=== PATIENT | male | born 1970 | race Caucasian/White ===

== ENCOUNTER 2021-11-19 00:28 | Day surgery (SDC) | payer BC, SELFPAY ==
[2021-11-11 10:13] VITALS: BMI 31.4
[2021-11-19 09:46] VITALS: BP 133/83; PULSE 73; RESP 18; TEMP 36.2; O2SAT 100
--- NOTE | 2021-11-19 09:57 | P.PNAN_ITS ---
Anes - Initial Pre Proc Eval Procedure: Operation Date: 11/19/21 11:00 Proposed Procedures p Screening Colonoscopy - Jairo Alberts MD Date/Time: 11/19/21 09:57 Surgeon: Jairo Alberts MD Pre Op Diagnosis: neoplasm screening Patient Data Age: 50 Gender: M Height: 1.8 m Weight: 103.6 kg Last Vital Signs Temp 36.2 C L 11/19/21 09:46 Pulse 73 11/19/21 09:46 Resp 18 11/19/21 09:46 BP 133/83 11/19/21 09:46 Pulse Ox 100 11/19/21 09:46 Allergies Allergy/AdvReac Type Severity Reaction Status Date / Time No Known Allergies Allergy Unknown Verified 11/19/21 09:45 Home Medications Medication Instructions Recorded Confirmed Type sod picosulf 10 mg-magnes 3.5 160 ml PO DAILY #320 ml 10/05/21 11/19/21 Rx gram-citric 12 gram/160 mL oral solution famotidine 20 mg PO DAILY PRN 11/11/21 11/19/21 History ibuprofen 600 mg PO Q6H PRN 11/11/21 11/19/21 History Patient hx anesthesia problems: none Family hx anesthesia problems: other (slow to awaken) Results Review: All pre-operative results and documents have been reviewed as part of the pre-operative evaluation. [facility] Past Medical History Medical History GERD (gastroesophageal reflux disease) Social History Social History Smoking status: Current some day smoker Tobacco type: cigars Alcohol intake: current Drinks per week: 3 Living arrangements: with family Spiritual care concerns: No Anes - Eval Final PreProcedure Day of Procedure 11/19/21 09:57 Patient weight: overweight Heart: regular rate and rhythm Lungs: clear to auscultation Airway: Mallampati scale class II Neurological: alert and oriented Last oral intake: >/= 8 hours ASA classification: II Emergent: no Anesthetic plan: proceed Anesthesia type and monitoring: general GIVS and standard monitoring Results Review: All pre-operative results and documents have been reviewed as part of the pre-operative evaluation. Informed Consent: The patient's anesthetic plan and its attendant risks and benefits were discussed with the patient/family/POA. Questions were solicited and answers provided to the satisfaction of the patient/family/POA.
[2021-11-19] MEDS: LACTATED RINGERS 1,000 ML 150 ML IV CONT (09:59)
--- NOTE | 2021-11-19 10:09 | PM.HPGS ---
History of Present Illness History of Present Illness Consent: Risks, benefits, and alternatives have been discussed and questions answered. Patient agrees to proceed with procedure. Chief complaint: neoplasm screening Narrative: Julian Flanagan is a 50 year old male here for first screening colonoscopy Review of Systems Constitutional: Constitutional: Denies headache(s) and Denies weakness Eyes: Eyes: Denies blurry vision ENT: Reports Normal hearing present, Denies headache(s) and Denies neck pain Cardiovascular: Cardiovascular: Denies chest pain and Denies dyspnea Respiratory: Respiratory: Denies dyspnea Gastrointestinal: Gastrointestinal: Reports no additional gastrointestinal complaints Genitourinary: Genitourinary: Denies dysuria Musculoskeletal: Musculoskeletal: Denies neck pain Integumentary/Breasts: Skin/Breast: Denies dry skin Neurologic: Reports Normal hearing present, Denies headache(s) and Denies weakness Psychiatric: Psychiatric: Denies anxiety Endocrine: Endocrine: Denies change in body appearance Hematologic/Lymphatic: Hematologic/Lymphatic: Denies easy bleeding Allergic/Immunologic: Allergic/Immunologic: Denies urticaria PMF Past Medical History Medical History (Updated 11/19/21 @ 10:10 by Jairo Alberts MD) Colon cancer screening GERD (gastroesophageal reflux disease) Social History Social History Smoking status: Current some day smoker Tobacco type: cigars Alcohol intake: current Drinks per week: 3 Living arrangements: with family Spiritual care concerns: No Meds Home Medications and Allergies Home Medications Medication Instructions Recorded Confirmed Type sod picosulf 10 mg-magnes 3.5 160 ml PO DAILY #320 ml 10/05/21 11/19/21 Rx gram-citric 12 gram/160 mL oral solution famotidine 20 mg PO DAILY PRN 11/11/21 11/19/21 History ibuprofen 600 mg PO Q6H PRN 11/11/21 11/19/21 History Allergies Allergy/AdvReac Type Severity Reaction Status Date / Time No Known Allergies Allergy Unknown Verified 11/19/21 09:45 Vital Signs Vital Signs - 24 hr 11/19/21 09:46 Temperature 97.2 F L Pulse Rate 73 Respiratory Rate 18 Blood Pressure 133/83 Pulse Oximetry 100 Exam Const: General: comfortable and no acute distress HENMT: General nose exam: Normal nares present Eyes: General: appearance normal, both eyes and all related structures Neck: Neck: no JVD Resp: Auscultation: clear to auscultation bilaterally Cardio: Rate: regular rate Rhythm: regular rhythm GI: Inspection: non-distended GI Palp: Yes Soft to palpation Skin: General skin exam: normal color Neuro: General: gait normal Speech: normal speech Extrem: General: normal to inspection Psych: Mental Status: mental status grossly normal Assessment and Plan Assessment and plan (1) Colon cancer screening: Code(s): Z12.11 - Encounter for screening for malignant neoplasm of colon Status: Acute Assessment and Plan: colonoscopy
[2021-11-19 10:42] VITALS: BP 114/59; PULSE 86; RESP 18; O2SAT 97
[2021-11-19 10:57] VITALS: BP 109/71; PULSE 67; RESP 18; O2SAT 96
[2021-11-19 11:02] VITALS: BP 123/76; PULSE 68; RESP 18; O2SAT 100
== END 2021-11-19 11:19 | disposition home or self-care (01) ==
PROVIDERS: PCP Internal Medicine; Visit Provider Internal Medicine Gastroenterology
PROC: 0DJD8ZZ Inspection of Lower Intestinal Tract, Via Natural or Artificial Opening Endoscopic (ICD-10-PCS; CPT 45378; principal; 2021-11-19 11:00)
DX: Z12.11 Encounter for screening for malignant neoplasm of colon (principal); K21.9 Gastro-esophageal reflux disease without esophagitis; F17.290 Nicotine dependence, other tobacco product, uncomplicated
CPT/HCPCS: 45378; J2001; J2704; J7120

== ENCOUNTER → 2023-05-18 08:09 | Outpatient (CLI) | payer BC, SELFPAY ==
--- NOTE | ~2023-05-18 | MMUS_ITS ---
EXAMINATION: MM diagnostic mann LT w christina, US breast LT limited HISTORY: Left breast pain TECHNIQUE: Additional 3-D tomosynthesis images of the left breast were performed and synthetic 2-D im ages were generated. CAD analysis was submitted and interpreted. High resolution Limited left breast ultrasound was performed. COMPARISON: None BREAST PARENCHYMAL COMPOSITION: Breast composition is almost entirely fatty FINDINGS: MAMMOGRAPHIC FINDINGS: There are no suspicious masses, calcifications or architectural distortion in the left breast to sugg est malignancy. There is by 9 bilateral symmetric gynecomastia. ULTRASOUND: Limited left breast ultrasound: Normal heterogeneous echotexture without focal solid or cystic mass. IMPRESSION: 1. No evidence for malignancy in the left breast. 2. Recommend follow-up clinical management for breast pain. BI-RADS Category 1: Negative Reviewed, dictated and finalized at location A. IMPRESSION: 1. No evidence for malignancy in the left breast. 2. Recommend follow-up clinical management for breast pain. BI-RADS Category 1: Negative
== END ==
PROVIDERS: PCP Nurse Practitioner Family; Visit Provider Nurse Practitioner Family
DX: N64.4 Mastodynia (principal)
CPT/HCPCS: 76642; 77061; 77065; G0279